=== PATIENT | female | born 1950 | race Two or more races ===

== ENCOUNTER 2023-09-24 23:54 | Inpatient (IN) | payer MEDICARE, OTHER ==
[~2023-09-24] VITALS: Ht 162.6 cm; Wt 85.3 kg
[2023-09-25] VITALS (38 sets, daily range): BP systolic 107–147; BP diastolic 55–124; TEMP 97.7–98; O2SAT 93–100
[2023-09-25] MEDS: NITROGLYCERIN 0.4 MG/TAB BOTTLE SL ONE (00:10)
[2023-09-25] MEDS: ASPIRIN 325 MG TABLET PO ONE (00:10)
[2023-09-25 00:33] LABS: BASOPHILS # (AUTO) 0.1 K/uL (0.0-0.2); BASOPHILS % (AUTO) 1.3 % (0.0-2.0); EOSINOPHILS % (AUTO) 0.4 % (0.0-6.0); HEMATOCRIT 37 % (33-45); HEMOGLOBIN 12.2 g/dL (11.5-14.8); LYMPHOCYTES # (AUTO) 1.1 K/uL (0.8-4.8); LYMPHOCYTES % (AUTO) 12.8 % (20.0-44.0); MEAN CORPUSCULAR HEMOGLOBIN 29 PG (26.0-33.0); MEAN CORPUSCULAR HGB CONC 33 g/dl (31.0-36.0); MEAN CORPUSCULAR VOLUME 90 fL (82-100); MONOCYTES # (AUTO) 0.6 K/uL (0.1-1.30); MONOCYTES % (AUTO) 6.4 % (2.0-12.0); NEUTROPHILS # (AUTO) 6.9 K/uL (1.8-8.9); NEUTROPHILS % (AUTO) 79.1 % (43.0-81.0); PLATELET COUNT (AUTO) 217 K/uL (150-450); RED BLOOD CELL COUNT(AUTO) 4.15 MIL/uL (4.0-5.2); RED CELL DISTRIBUTION WIDTH 14.8 % (11.5-15.0); WHITE BLOOD COUNT (AUTO) 8.8 K/uL (4.3-11.0)
[2023-09-25 00:46] LABS: CARBON DIOXIDE 25 mmol/L (21-32); CHLORIDE 108 mmol/L (98-107); CREATININE 1.7 mg/dL (0.6-1.3); GLUCOSE 169 mg/dL (74-106); POTASSIUM 4.2 mmol/L (3.5-5.1); SODIUM SERUM 141 mmol/L (136-145); UREA NITROGEN, BLOOD 34 mg/dL (7-18)
[2023-09-25 01:02] LABS: NT-PRO BNP 488 pg/mL (0-125)
[2023-09-25] MEDS ORDERED: ENOXAPARIN SODIUM 100 MG/ML DISP.SYRIN SQ ONE (02:00)
[2023-09-25] MEDS: ENOXAPARIN SODIUM 80 MG/0.8 ML DISP.SYRIN SQ SCH ×2 (02:04→08:10)
[2023-09-25] MEDS ORDERED: Z GUARD REMEDY 4 OZ OINT TP PRN (03:30)
[2023-09-25] MEDS ORDERED: MAG HYDROX/AL HYDROX/SIMETH 30 ML UDC PO PRN (03:30)
[2023-09-25] MEDS ORDERED: ONDANSETRON HCL/PF 4 MG/2 ML VIAL IVP PRN (03:30)
[2023-09-25] MEDS ORDERED: ACETAMINOPHEN 325 MG TABLET PO PRN (03:30)
[2023-09-25] MEDS ORDERED: MAGNESIUM HYDROXIDE 30 ML UDC PO PRN (03:30)
[2023-09-25 06:58] LABS: BASOPHILS % (AUTO) 0.2 % (0.0-2.0); EOSINOPHILS % (AUTO) 0.5 % (0.0-6.0); HEMATOCRIT 33 % (33-45); HEMOGLOBIN 11.1 g/dL (11.5-14.8); LYMPHOCYTES # (AUTO) 1.6 K/uL (0.8-4.8); LYMPHOCYTES % (AUTO) 20.8 % (20.0-44.0); MEAN CORPUSCULAR HEMOGLOBIN 30 PG (26.0-33.0); MEAN CORPUSCULAR HGB CONC 33 g/dl (31.0-36.0); MEAN CORPUSCULAR VOLUME 90 fL (82-100); MONOCYTES # (AUTO) 0.6 K/uL (0.1-1.30); MONOCYTES % (AUTO) 8.4 % (2.0-12.0); NEUTROPHILS # (AUTO) 5.3 K/uL (1.8-8.9); NEUTROPHILS % (AUTO) 70.1 % (43.0-81.0); PLATELET COUNT (AUTO) 174 K/uL (150-450); RED BLOOD CELL COUNT(AUTO) 3.69 MIL/uL (4.0-5.2); RED CELL DISTRIBUTION WIDTH 14.7 % (11.5-15.0); WHITE BLOOD COUNT (AUTO) 7.5 K/uL (4.3-11.0)
[2023-09-25] MEDS: PANTOPRAZOLE 40 MG TABLET.DR PO SCH (07:35)
[2023-09-25 07:41] LABS: CALCIUM, SERUM 9.8 mg/dL (8.5-10.1); CARBON DIOXIDE 25 mmol/L (21-32); CHLORIDE 112 mmol/L (98-107); CREATININE 1.6 mg/dL (0.6-1.3); GLUCOSE 135 mg/dL (74-106); POTASSIUM 4.3 mmol/L (3.5-5.1); SODIUM SERUM 144 mmol/L (136-145); UREA NITROGEN, BLOOD 33 mg/dL (7-18)
[2023-09-25] MEDS ORDERED: NTG 50 MG/D5W250 ML BOTTL 250 ML IV PRN (08:00)
[2023-09-25] MEDS: DOCUSATE SODIUM 100 MG CAPSULE PO SCH (08:09)
[2023-09-25] MEDS: ASPIRIN 325 MG TABLET PO SCH (08:09)
[2023-09-25] MEDS: METOPROLOL TARTRATE 50 MG TABLET PO SCH (08:24)
[2023-09-25] MEDS ORDERED: IV NS 0.9% 1,000 ML IV PRN (08:30)
[2023-09-25 08:47] LABS: CHOLESTEROL 145 mg/dL (<200); HDL CHOLESTEROL 57 mg/dL (40-60); LDL 69 mg/dL (0-99); THYROID STIMULATING HORMONE 1.411 uIU/mL (0.358-3.74); TRIGLYCERIDES 74 mg/dL (30-150)
[2023-09-25] MEDS ORDERED: CARV12.5 PO (09:05)
[2023-09-25] MEDS ORDERED: GABA300C PO (09:05)
[2023-09-25] MEDS ORDERED: ATOR40TA PO (09:05)
[2023-09-25] MEDS ORDERED: LINA5TAB PO (09:05)
[2023-09-25] MEDS ORDERED: AMLO5TAB4 PO (09:05)
[2023-09-25] MEDS ORDERED: LIPA1CAP15 PO (09:05)
[2023-09-25] MEDS ORDERED: INSU100I26 SQ (09:05)
[2023-09-25] MEDS ORDERED: EMPA10TA PO (09:05)
[2023-09-25] MEDS ORDERED: ICOS1CAP PO (09:05)
[2023-09-25] MEDS ORDERED: INSU100V11 SQ (09:05)
[2023-09-25] MEDS ORDERED: HYDR200T4 PO (09:05)
[2023-09-25] MEDS ORDERED: FLUT16SP16 BNOSTRILS (09:05)
[2023-09-25] MEDS ORDERED: DEXL30CA3 PO (09:05)
[2023-09-25] MEDS ORDERED: OLME20TA13 PO (09:05)
[2023-09-25] MEDS ORDERED: FEBU40TA PO (09:05)
[2023-09-25] MEDS: NTG 50 MG/D5W250 ML BOTTL 250 ML IV PRN (10:50)
[2023-09-25] MEDS ORDERED: NTG 50 MG/D5W250 ML BOTTL 50 MG/250 ML BTL IV ONE (11:00)
[2023-09-25] MEDS ORDERED: *INSULIN REGULAR(HUMULIN R)HUM 100 UNIT/ML VIAL SQ PRN (11:57)
[2023-09-25] MEDS ORDERED: INSULIN REGULAR, HUMAN 100 UNIT/ML 3 ML VIAL SQ PRN ×2 (12:00)
[2023-09-25] MEDS ORDERED: DEXTROSE 50%-WATER 50 ML DISP.SYRIN IV PRN ×2 (12:00)
[2023-09-25] MEDS: BLOOD SUGAR DIAGNOSTIC 1 EACH STRIP VI SCH (12:01)
[2023-09-25] MEDS ORDERED: Medication Not On Formulary EA (Lipase/Protease/Amylase (Creon Dr 36,000 Units Capsule) PO SCH (13:00)
[2023-09-25] MEDS: BLOOD SUGAR DIAGNOSTIC 1 EACH STRIP IN SCH (15:07)
[2023-09-25] MEDS ORDERED: CARVEDILOL 12.5 MG TABLET PO SCH (17:00)
[2023-09-25] MEDS ORDERED: ATORVASTATIN 40 MG TABLET PO SCH (22:00)
[2023-09-25] MEDS ORDERED: INSULIN GLARGINE, 100 UNIT/ML CARTRIDGE SQ SCH (22:00)
[2023-09-25] MEDS ORDERED: GABAPENTIN 300 MG CAPSULE PO SCH (22:00)
[2023-09-26] MEDS ORDERED: Medication Not On Formulary EA (Icosapent Ethyl (Vascepa) 1 GM) PO SCH (09:00)
[2023-09-26] MEDS ORDERED: AMLODIPINE BESYLATE 5 MG TABLET PO SCH (09:00)
[2023-09-26] MEDS ORDERED: Medication Not On Formulary EA (Empagliflozin (Jardiance) 10 MG) PO SCH (09:00)
[2023-09-26] MEDS ORDERED: HYDROXYCHLOROQUINE 200 MG TABLET PO SCH (09:00)
[2023-09-26] MEDS ORDERED: LOSARTAN POTASSIUM 50 MG TABLET PO SCH (09:00)
== END 2023-09-25 20:33 | disposition short-term general hospital (02) | DRG 280 ==
LOC: ER 23:56 → TELE1 09-25 00:51 → TELE 09-25 01:33 → ICU 09-25 09:31
PROVIDERS: ADMIT Internal Medicine; ATTEND Internal Medicine
DX: I21.4 Non-ST elevation (NSTEMI) myocardial infarction (principal); N17.0 Acute kidney failure with tubular necrosis; I25.10 Atherosclerotic heart disease of native coronary artery without angina pectoris; D64.9 Anemia, unspecified; I25.2 Old myocardial infarction; E78.5 Hyperlipidemia, unspecified; I12.9 Hypertensive chronic kidney disease with stage 1 through stage 4 chronic kidney disease, or unspecified chronic kidney disease; E11.22 Type 2 diabetes mellitus with diabetic chronic kidney disease; N18.9 Chronic kidney disease, unspecified; Z79.4 Long term (current) use of insulin; Z79.84 Long term (current) use of oral hypoglycemic drugs
CPT/HCPCS: 36415; 71045-TC; 80048-TC; 80061-TC; 82962-TC; 83735-TC; 83880; 84443-TC; 84484-TC; 85025-TC; 87081-TC; 93307-TC; A4223; G0378; J1650; J1815; J3490